=== PATIENT | female | born 1935 ===

== ENCOUNTER 2021-10-26 12:30 | Inpatient (IN) | payer OTHER ==
[~2021-10-26] VITALS: Ht 152.4 cm; Wt 59.9 kg
[2021-10-26] MEDS ORDERED: ATORVASTATIN CA40 MG PO (15:15)
[2021-10-26] MEDS ORDERED: ATACAND HCT 321 EAC1 PO (15:16)
[2021-10-26] MEDS ORDERED: ACEBUTOLOL HCL400 MG PO (15:16)
[2021-10-26] MEDS ORDERED: INTEGRA F CAPS1 EACH PO (15:17)
[2021-10-31] MEDS ORDERED: OPTIMAL D31250 MCG (10:59)
[2021-10-31] MEDS ORDERED: GABAPENTIN600 MG (10:59)
[2021-10-31] MEDS ORDERED: HYDROCHLOROTHIA25 MG (10:59)
[2021-10-31] MEDS ORDERED: ADULTS 50 PLUS1 EACH (10:59)
[2021-10-31] MEDS ORDERED: CLOPIDOGREL BIS75 MG (10:59)
[2021-10-31] MEDS ORDERED: EZETIMIBE10 MG (10:59)
[2021-10-31] MEDS ORDERED: SPIRONOLACTONE25 MG (11:00)
[2021-10-31] MEDS ORDERED: INTEGRA PLUS C1 EAC1 (11:00)
[2021-11-03] MEDS ORDERED: SIMETHICONE80 MG PO (09:45)
[2021-11-03] MEDS ORDERED: QUESTRAN PACKET4 GM PO (09:45)
== END 2021-11-03 12:33 | disposition home or self-care (01) | DRG 331 ==
LOC: O/R 10-31 06:38 → SURH 10-31 06:38
PROVIDERS: ADMIT Surgery; ATTEND Surgery
PROC: 07BB4ZZ Excision of Mesenteric Lymphatic, Percutaneous Endoscopic Approach (ICD-10-PCS; 2021-10-31)
PROC: 4A12X4Z Monitoring of Cardiac Electrical Activity, External Approach (ICD-10-PCS; 2021-10-31)
PROC: 0DTF4ZZ Resection of Right Large Intestine, Percutaneous Endoscopic Approach (ICD-10-PCS; principal; 2021-10-31 13:00)
DX: C18.0 Malignant neoplasm of cecum (principal); D50.9 Iron deficiency anemia, unspecified; R59.0 Localized enlarged lymph nodes; R00.0 Tachycardia, unspecified; Z20.822 Contact with and (suspected) exposure to COVID-19; I10 Essential (primary) hypertension; I49.8 Other specified cardiac arrhythmias

== ENCOUNTER 2022-12-09 05:25 | Day surgery (SDC) | payer OTHER ==
[~2022-12-09 05:25] MED LIST: ACEBUTOLOL HCL400 MG PO; ADULTS 50 PLUS1 EACH; ATACAND HCT 321 EAC1 PO; ATORVASTATIN CA40 MG PO; CLOPIDOGREL BIS75 MG; EZETIMIBE10 MG; GABAPENTIN600 MG; HYDROCHLOROTHIA25 MG; INTEGRA F CAPS1 EACH PO; INTEGRA PLUS C1 EAC1; OPTIMAL D31250 MCG; QUESTRAN PACKET4 GM PO; SIMETHICONE80 MG PO; SPIRONOLACTONE25 MG
== END 2022-12-09 09:15 | disposition home or self-care (01) ==
LOC: AMB-ENDOS 05:25
PROVIDERS: ATTEND Surgery
DX: K57.30 Diverticulosis of large intestine without perforation or abscess without bleeding (principal); K63.89 Other specified diseases of intestine; Z85.038 Personal history of other malignant neoplasm of large intestine; Z20.822 Contact with and (suspected) exposure to COVID-19; I10 Essential (primary) hypertension; E78.5 Hyperlipidemia, unspecified